=== PATIENT | female | born 1950 | race Caucasian/White ===

== ENCOUNTER → 2020-06-30 17:19 | Outpatient (CLI) | payer MEDICARE, SELFPAY | PROVIDERS: PCP Family Medicine; Referring Provider Family Medicine; Visit Provider Family Medicine | DX: U07.1 COVID-19 (principal) | CPT/HCPCS: 87635; C9803; U0003 ==

== ENCOUNTER 2021-12-12 16:27 | Emergency (ER) | payer MEDICARE, SELFPAY ==
[2021-12-12 16:28] VITALS: BP 150/86; PULSE 113; RESP 18; TEMP 35.9; O2SAT 100; BMI 23.6
--- NOTE | 2021-12-12 16:49 | CT_ITS ---
INDICATION: injury EXAMINATION: CT BRAIN - CT Head or Brain W/O Contrast Injection TECHNIQUE: Multiple axial images were obtained of the head without intravenous contrast. A radiation dose optimization technique was used for this scan. IV Contrast dosage and agent: None. Radiation Dose (provided by facility) CTDIvol (NA ) mGy, DLP ( NA) mGy-cm COMPARISON: Not available FINDINGS: HEMISPHERES: 1. The cerebral parenchyma, ventricular system, subarachnoid spaces have normal configuration and density. There is a normal gyral pattern. There is normal bartlett/white differentiation. No midline shift.. 2. There are minimal age consistent involutional changes and chronic deep white matter disease for age. 3. No intraparenchymal mass, hemorrhage, or acute territorial infarct. CEREBELLUM - BRAINSTEM: The cerebellum, brainstem, basilar and suprasellar cisterns have normal appearance. No Chiari malformation. PITUITARY: Infundibulum and pituitary have normal configuration. Midline structures appear normal. VESSELS: 1. Minimal scattered vascular calcifications in the cavernous carotid vessels. 2. No hyperdense vascular signs noted.. ORBITS AND PARANASAL SINUSES: 1. Normal appearance of the bony orbits. Normal appearance of the globes and retrobulbar soft tissues.. 2. Paranasal sinuses are clear. BONY ELEMENTS: Bony elements of the cranial vault, facial skeleton and skull base have normal appearance. Mild deformity of nasal skeleton consistent with nondisplaced fractures greater on the RIGHT than LEFT. SCALP AND SOFT TISSUES: Normal appearance of the soft tissues of the scalp and the visualized face OTHER: None CT/Brain/Head without Contrast IMPRESSION: 1. Mild age consistent involutional changes and chronic deep white matter disease. 2. No mass, hemorrhage, or acute territorial infarct. 3. No intracranial evidence of acute traumatic injury. 4. Subtle bilateral nasal fractures greater on the RIGHT than LEFT. 5. No evidence of fluid or blood in the paranasal sinuses middle ear cavities or mastoid air cells. Electronically Signed: Dago Hewitt MD at 17:29 EDT ,
--- NOTE | 2021-12-12 16:49 | CT_ITS ---
EXAM: CT CERVICAL SPINE WITHOUT INTRAVENOUS CONTRAST CLINICAL INDICATION: injury TECHNIQUE: Helically acquired images were obtained of the cervical spine without intravenous contrast. 2D reformatted images were reviewed. CTDIvol = ( 13.25 ) mGy, DLP = ( 260.51 ) mGycm This CT exam was performed using one or more of the following dose reduction techniques: automated exposure control, adjustment of the mA and/or kV according to patient size, and/or use of iterative reconstruction technique. This report was created using [employer] report [employer] technology. COMPARISON: None. FINDINGS: VERTEBRAE: No evidence of acute or healing fracture or malalignment. No traumatic subluxation. No discrete lytic or blastic abnormality. Normal craniocervical junction and cervicothoracic junction. DISCS/SPINAL CANAL/NEURAL FORAMINA: Multilevel spine degenerative changes. No critical central canal stenosis or apical pneumothorax. SOFT TISSUES: Unremarkable. No prevertebral soft tissue swelling. VASCULATURE: Atherosclerotic calcifications of the internal carotid arteries of the neck. LYMPH NODES: Unremarkable. No cervical adenopathy. LUNG APICES: Unremarkable as visualized. Clear. CT/Spine Cervical without Contras IMPRESSION: No evidence of acute or healing fracture or malalignment. Electronically Signed: Javi Nielsen MD at 17:39 EDT ,
--- NOTE | 2021-12-12 16:49 | CT_ITS ---
INDICATION: injury EXAMINATION: CT FACIAL BONES - CT Maxillofacial W/O Contrast Injection TECHNIQUE: Helically acquired images were obtained of the facial bones. A radiation dose optimization technique was used for this scan. IV Contrast dosage and agent: None. COMPARISON: CT examination of the head on the same date. FINDINGS: ORBITS: 1. Normal appearance the bony lopez the orbits. Soft tissue planes including preseptal and post septal soft tissue planes have normal appearance. Normal appearance of the globes, ocular lenses and optic nerves. NASAL SKELETON: Subtle bilateral nasal fractures without significant displacement. Associated soft tissue swelling is noted. Nasal septum is near midline. PARANASAL SINUSES: Normal, no fluid collections noted. SKULL BASE AND ZYGOMATIC ARCHES: Normal, normal alignment, no fractures noted. VISUALIZED MANDIBLE: 1. Normal appearance of the mandibular condyles, TMJs, and the visualized mandible to the level of the symphysis. 2. The visualized dentition appears intact. OTHER: Normal appearance of the deep spaces of the head and visualized upper neck. Airway has normal appearance. CT/Sinus/Facial Bone IMPRESSION: 1. Subtle bilateral nasal fractures without significant displacement. Associated soft tissue swelling is noted. 2. No other cranial facial fracture noted. Orbits are well-maintained. 3. No evidence fluid or blood in the paranasal sinuses middle ear cavities or mastoid air cells. Electronically Signed: Dago Hewitt MD at 17:47 EDT ,
--- NOTE | 2021-12-12 16:51 | ED.VIS.FALL ---
HPI HPI - Fall History of Present Illness Chief Complaint: Fall Informant: patient Occured/Mechanism Occurred: Today Mechanism/Context: Yes same level fall Pain/Injury Pain Location: face and neck Quality of Pain: Aching Current Severity: Mild Maximum Severity: Moderate Narrative Narrative: Patient presents after fall at her daughter's house. She tripped on cement and fell forward striking her face. No loss of consciousness. Patient does have a mild headache and is on Eliquis. She has multiple facial abrasions. She also complains of left knee pain. [facility] Medical History Arthritis Atrial fibrillation Home Medications cephalexin 500 mg PO Q12 #14 cap 12/12/21 [Rx Last Taken Unknown] Allergy/AdvReac Type Severity Reaction Status Date / Time codeine Allergy Vomiting Verified 12/12/21 16:30 Social History Smoking Status: Never smoker ROS ROS ED Constitutional Constitutional ED: Denies chills or fever(s) Eyes Eyes: Denies blurry vision ENT ENT ED: Reports other Details: Facial pain Cardiovascular Cardiovascular: Denies chest pain or palpitations Respiratory/Chest Respiratory/Chest: Denies cough or dyspnea Gastrointestinal Gastrointestinal: Denies abdominal pain, diarrhea, nausea or vomiting Musculoskeletal Musculoskeletal: Reports arthralgias and neck pain Integumentary Reports Abrasions Neurologic Neurologic: Reports headache(s); Denies paresthesias or weakness Hematologic/Lymphatic Hematologic/Lymphatic: Denies easy bleeding or easy bruising Allergic/Immunologic Allergic/Immunologic ED: Denies mouth swelling or urticaria EXAM Physical Exam Const Vital Signs: 12/12/21 16:28 12/12/21 17:11 Temperature 96.7 F L Temperature Source Temporal Pulse Rate 113 H Respiratory Rate 18 Respiratory Effort Normal Respiratory Depth Normal Respiratory Pattern Normal Blood Pressure 150/86 H Blood Pressure Mean 107 Pulse Ox 100 Oxygen Delivery Method Room Air Positive well nourished and well developed General Appearance ED: well developed HEENT Reports normocephalic HEENT Narrative: Abrasion to the lateral left forehead and just below the nose over the upper lip. Stellate laceration with total laceration length of 3 cm over the left maxilla. Maxillary central incisors slightly off center. Eyes PERRL and EOMs intact bilaterally Neck Neck Narrative: Mild C-spine tenderness. No step-offs. Chest Wall inspection of chest normal and palpation of chest normal Resp normal respiratory effort and clear to auscultation bilaterally Cardio regular rate and regular rhythm GI non-tender Palpation: soft Extremity Extremity Narrative: Superficial abrasions to the left anterior knee. Mild bony tenderness. Good range of motion. Remainder of extremities unremarkable. Neuro oriented x3 and no sensory deficits noted Sensorium / Orientation: alert Motor Exam: strength 5/5 throughout Skin Skin Narrative: As noted above MDM MDM MDM Narrative Medical decision making narrative: Patient given Tylenol for pain. CT scan of the head, C-spine, facial bones obtained. Left knee x-rays ordered. Radiography Diagnostic Testing: Clinical Impression(s) from Imaging Studies Brain CT 12/12/21 16:49 IMPRESSION: 1. Mild age consistent involutional changes and chronic deep white matter disease. 2. No mass, hemorrhage, or acute territorial infarct. 3. No intracranial evidence of acute traumatic injury. 4. Subtle bilateral nasal fractures greater on the RIGHT than LEFT. 5. No evidence of fluid or blood in the paranasal sinuses middle ear cavities or mastoid air cells. Electronically Signed: Dago Hewitt MD at 17:29 EDT , Cervical Spine CT 12/12/21 16:49 IMPRESSION: No evidence of acute or healing fracture or malalignment. Electronically Signed: Javi Nielsen MD at 17:39 EDT , Facial/Sinus 12/12/21 16:49 IMPRESSION: 1. Subtle bilateral nasal fractures without significant displacement. Associated soft tissue swelling is noted. 2. No other cranial facial fracture noted. Orbits are well-maintained. 3. No evidence fluid or blood in the paranasal sinuses middle ear cavities or mastoid air cells. Electronically Signed: Dago Hewitt MD at 17:47 EDT , Knee X-Ray 12/12/21 17:04 IMPRESSION: Negative left knee x-rays. Electronically Signed: Javi Nielsen MD at 17:51 EDT Reading Location ID and State: [address] [place] [address] Tel , Service support , Treatment and Re-Evaluation Narrative: Left knee x-ray per my interpretation reveals no acute fracture. Radiologist interpretation also reviewed. CT scans reviewed and reveals subtle bilateral nasal fractures. Facial wounds are cleansed. The stellate laceration of the left maxilla is discussed with her. I did recommend sutures. She would prefer just Dermabond. We discussed pros and cons and she was still prefer Dermabond repair. This was performed. Patient is to follow-up with her primary care physician as well as her dentist. She will be covered with Keflex secondary to the nasal bone fractures and sinus proximity. Discharge Plan Triage Chief Complaint: Fall ED Provider: Katy Stinson Dx/Rx/DC Orders Clinical Impression: Fall, Facial laceration, Closed fracture nasal bone, CHI (closed head injury) Instructions: ED Nose Fracture, with X-Ray, ED Head Injury (Adult), ED Laceration: All Closures Prescriptions: New cephalexin 500 mg capsule 500 mg PO Q12 Qty: 14 RF: 0 Primary Care Provider: Pete Campos Referrals: Pete Campos MD [Primary Care Provider] - 1 Week Disposition Disposition: Home, Self Care
--- NOTE | 2021-12-12 17:04 | RAD_ITS ---
EXAM: XR LEFT KNEE, 3 VIEWS CLINICAL INDICATION: injury TECHNIQUE: Three views of the left knee. This report was created using [employer] report generation technology. COMPARISON: None. FINDINGS: BONES/JOINTS: Unremarkable. No acute fracture. No subluxation. Normal alignment. Preservation of the joint space. No sclerotic or destructive changes observed. SOFT TISSUES: Unremarkable. No soft tissue swelling or gas. No radiopaque foreign body. RAD/Knee 4 or More Views IMPRESSION: Negative left knee x-rays. Electronically Signed: Javi Nielsen MD at 17:51 EDT ,
[2021-12-12] MEDS: Acetaminophen 500 MG Tablet 1000 MG PO (17:15)
[2021-12-12] MEDS: Cephalexin 250 MG Capsule 500 MG PO (18:39)
--- NOTE | 2021-12-15 12:19 | CM.ED ---
ER RNCM DC F/u Call: Seen in ER 12/12/21 for Trip/Fall with facial laceration- Dermabond applied, B/l nasal Fx, Dc'd with Keflex. Patient on Eliquis. Called patient listed cell number, patient answered phone and this bid writer introduced self and role. Patient states the past couple days were rough but feeling better today with intention to wash hair on as she will f/u with PCP on Monday12/17/21. Denies any further concerns, needs or issues at this time. Confirmed has been taking her Abx Keflex, denies any s/s infection and states Dermabond is still holding up. Johnathan Romo, [id number]
== END 2021-12-12 18:44 | disposition home or self-care (01) ==
PROVIDERS: Emergency Provider Emergency Medicine; PCP Family Medicine; Visit Provider Emergency Medicine
DX: S02.2XXA Fracture of nasal bones, initial encounter for closed fracture (principal); S80.212A Abrasion, left knee, initial encounter; S01.81XA Laceration without foreign body of other part of head, initial encounter; W18.30XA Fall on same level, unspecified, initial encounter; W18.09XA Striking against other object with subsequent fall, initial encounter; Y93.9 Activity, unspecified; Y92.9 Unspecified place or not applicable
CPT/HCPCS: 12013; 70450; 70486; 72125; 73564; 99283